=== PATIENT | female | born 1990 | race Caucasian/White ===

== ENCOUNTER 2020-05-08 12:23 | Inpatient (IN) ==
[2020-05-08] MEDS ORDERED: Lactated Ringers 1000 ml BAG 1,000 ML IV ONE (13:43)
[2020-05-08] MEDS ORDERED: Dinoprostone 10 MG VAG.SUPP VAGINAL ONE (13:43)
[2020-05-08] MEDS ORDERED: Lactated Ringers 1000 ml BAG 1,000 ML IV SCH (14:00)
[2020-05-08 15:23] LABS: Urine Benzodiazepine Screen None Detected (None Detect); Urine Opiates Screen None Detected (None Detect)
[2020-05-09 16:23] LABS: ABS Lymphocytes 1.3 10^3/ul (1.0-4.8); ABS Monocytes 0.8 10^3/ul (0-0.8); Eosinophil % 0.3 %; Hematocrit 40 % (35-47); Hemoglobin 13.4 g/dL (12.0-16.0); Lymphocyte % 10.7 %; Mean Corpuscular HGB Conc 34 g/dL (31-36); Mean Corpuscular Hemoglobin 32 pg (27-31); Mean Corpuscular Volume 95 fL (80-97); Mean Platelet Volume 8.9 fL (7.4-10.4); Nucleated Red Blood Cells % 0.1; Platelet Count 244 10^3/uL (150-450); Red Blood Count 4.17 10^6 /uL (3.70-4.87); Red Cell Distribution Width 13 % (10-15); White Blood Count 12.5 10^3/uL (3.5-10.8)
[2020-05-09 16:44] LABS: ALT 19 U/L (7-52); Albumin 3.4 g/dL (3.2-5.2); Alkaline Phosphatase 101 U/L (34-104); BUN/Creatinine Ratio 12.3 (8-20); Blood Urea Nitrogen 8 mg/dL (6-24); CO2 Carbon Dioxide 22 mmol/L (22-32); Calcium 9.1 mg/dL (8.6-10.3); Chloride 103 mmol/L (101-111); EGFR African American 128.6 (>60); EGFR Non-African American 106.3 (>60); Globulin 3.4 g/dL (2-4); Glucose 79 mg/dL (70-100); Sodium 133 mmol/L (135-145); Total Protein 6.8 g/dL (6.4-8.9)
[2020-05-09 17:10] LABS: Anion Gap 8 mmol/L (2-11)
[2020-05-09] MEDS ORDERED: diPHENhydraMINE 25 mg TAB PO PRN (20:17)
[2020-05-10] MEDS ORDERED: Oxytocin in LR 20 UNITS/1,000 ML BAG IVPB ONE (09:43)
[2020-05-10] MEDS ORDERED: Oxytocin in LR 20 UNITS/1,000 ML BAG IVPB SCH (10:00)
[2020-05-11 07:10] LABS: Potassium Redraw 3.9 mmol/L (3.5-5.0)
[2020-05-11 09:43] LABS: ABS Eosinophils 0.1 10^3/ul (0-0.6); ABS Lymphocytes 1.4 10^3/ul (1.0-4.8); ABS Monocytes 0.5 10^3/ul (0-0.8); Eosinophil % 1.1 %; Hematocrit 38 % (35-47); Hemoglobin 12.9 g/dL (12.0-16.0); Lymphocyte % 17.1 %; Mean Corpuscular HGB Conc 34 g/dL (31-36); Mean Corpuscular Hemoglobin 31 pg (27-31); Mean Corpuscular Volume 93 fL (80-97); Mean Platelet Volume 8.4 fL (7.4-10.4); Nucleated Red Blood Cells % 0.1; Platelet Count 241 10^3/uL (150-450); Red Blood Count 4.13 10^6 /uL (3.70-4.87); Red Cell Distribution Width 13 % (10-15); White Blood Count 8.1 10^3/uL (3.5-10.8)
[2020-05-11 10:07] LABS: Albumin 3.2 g/dL (3.2-5.2); BUN/Creatinine Ratio 9.8 (8-20); Calcium 8.5 mg/dL (8.6-10.3); EGFR African American 138.4 (>60); EGFR Non-African American 114.4 (>60); Globulin 3.1 g/dL (2-4); Potassium 3.5 mmol/L (3.5-5.0); Total Bilirubin 0.6 mg/dL (0.2-1.0); Total Protein 6.3 g/dL (6.4-8.9); Uric Acid 4.5 mg/dL (2.3-6.6)
[2020-05-11] MEDS ORDERED: OBEPIDURAL 250 ML EPIDURAL ONE (23:12)
[2020-05-12] MEDS ORDERED: Phenylephrine 40 mcg/mL 10mL (400mcg) SYRINGE IV PUSH PRN ×2 (00:55)
[2020-05-12] MEDS ORDERED: EPHEDrine (Pressors) 50 MG/ML VIAL IV PUSH PRN ×2 (00:55)
[2020-05-12] MEDS ORDERED: Lactated Ringers 1000 ml BAG 500 ML IV PRN (00:55)
[2020-05-12] MEDS ORDERED: Sodium Citrate/Citric Acid LIQ 15 ML UDC PO PRN (00:55)
[2020-05-12] MEDS ORDERED: Lactated Ringers 1000 ml BAG 1,000 ML IV ONE (00:55)
[2020-05-12] MEDS ORDERED: Lactated Ringers 1000 ml BAG 1,000 ML IV SCH ×2 (01:00→15:00)
[2020-05-12] MEDS: OBEPIDURAL 250 ML EPIDURAL SCH (07:07)
[2020-05-12 09:43] LABS: ABS Lymphocytes 1.2 10^3/ul (1.0-4.8); ABS Monocytes 1.2 10^3/ul (0-0.8); Eosinophil % 0.1 %; Hematocrit 35 % (35-47); Hemoglobin 11.8 g/dL (12.0-16.0); Lymphocyte % 7.9 %; Mean Corpuscular HGB Conc 34 g/dL (31-36); Mean Corpuscular Hemoglobin 31 pg (27-31); Mean Corpuscular Volume 93 fL (80-97); Mean Platelet Volume 8.5 fL (7.4-10.4); Platelet Count 239 10^3/uL (150-450); Red Blood Count 3.77 10^6 /uL (3.70-4.87); Red Cell Distribution Width 13 % (10-15); White Blood Count 15.4 10^3/uL (3.5-10.8)
[2020-05-12 10:03] LABS: Albumin 2.9 g/dL (3.2-5.2); BUN/Creatinine Ratio 8.6 (8-20); Calcium 8.3 mg/dL (8.6-10.3); EGFR African American 146.7 (>60); EGFR Non-African American 121.3 (>60); Globulin 2.8 g/dL (2-4); Potassium 3.6 mmol/L (3.5-5.0); Total Bilirubin 0.6 mg/dL (0.2-1.0); Total Protein 5.7 g/dL (6.4-8.9); Uric Acid 4.3 mg/dL (2.3-6.6)
[2020-05-12] MEDS ORDERED: Dibucaine 1% OINT 28.35 GM TUBE ONE (13:30)
[2020-05-12] MEDS ORDERED: Witch Hazel PAD JAR ONE (13:30)
[2020-05-12] MEDS: Dibucaine 1% OINT 28.35 GM TUBE PR PRN (14:58)
[2020-05-12] MEDS: Witch Hazel PAD JAR TOPICAL PRN (14:58)
[2020-05-12] MEDS ORDERED: Oxytocin in LR 20 UNITS/1,000 ML BAG IVPB SCH (15:00)
[2020-05-12] MEDS ORDERED: Lidocaine 1% VIAL 10 MG/ML VIAL ONE (17:48)
[2020-05-12] MEDS ORDERED: Methylergonovine 0.2 mg AMPULE 1 ml AMP ONE (18:13)
[2020-05-13] MEDS: OBEPIDURAL 250 ML EPIDURAL SCH (08:48)
[2020-05-13 09:05] LABS: ABS Eosinophils 0.2 10^3/ul (0-0.6); ABS Lymphocytes 2.3 10^3/ul (1.0-4.8); ABS Monocytes 0.8 10^3/ul (0-0.8); Eosinophil % 1.2 %; Hematocrit 27 % (35-47); Hemoglobin 9.4 g/dL (12.0-16.0); Lymphocyte % 16.4 %; Mean Corpuscular HGB Conc 35 g/dL (31-36); Mean Corpuscular Hemoglobin 32 pg (27-31); Mean Corpuscular Volume 92 fL (80-97); Mean Platelet Volume 8.3 fL (7.4-10.4); Platelet Count 213 10^3/uL (150-450); Red Blood Count 2.94 10^6 /uL (3.70-4.87); Red Cell Distribution Width 13 % (10-15); White Blood Count 14.3 10^3/uL (3.5-10.8)
[2020-05-13] MEDS: Dibucaine 1% OINT 28.35 GM TUBE PR PRN (09:27)
[2020-05-13] MEDS: Witch Hazel PAD JAR TOPICAL PRN (13:30)
[2020-05-14 07:51] VITALS: BP 140/88
[2020-05-14] MEDS: Dibucaine 1% OINT 28.35 GM TUBE PR PRN (14:14)
== END 2020-05-14 15:34 | disposition home or self-care (01) | DRG 806 ==
LOC: MCHOBOUT 12:23 → MCHOB 13:29
PROVIDERS: ADMIT Midwife; ATTEND Midwife